=== PATIENT | female | born 1980 | race Two or more races ===

== ENCOUNTER 2025-03-03 17:51 | Emergency (ER) | payer BC, SELFPAY ==
[2025-03-03 17:52] VITALS: BMI 30.4
[2025-03-03 18:22] VITALS: BP 138/92; PULSE 85; RESP 18; TEMP 36.7; O2SAT 97
[2025-03-03 18:56] LABS: Collection Type, Urine Clean Catch
[2025-03-03 19:16] LABS: Bilirubin,Urine Negative (Negative); Blood,Urine 3+ (Negative); Clarity,Urine Clear (Clear/Hazy); Color,Urine Yellow (Lt Yel-Yel); Culture Indicated,Urine Not Indicated; Glucose, Urine Negative (Negative); Ketones,Urine Negative (Negative); Leukocyte Esterase,Urine Positive (Negative); Nitrite,Urine Negative (Negative); Protein,Urine Negative (Neg - Trace); RBC,Urine 27 /hpf (0-3); Specific Gravity,Urine 1.008 (1.001-1.035); Squamous Epithelial Cell,Urine 2 /hpf (0-5); Urobilinogen,Urine Negative mg/dL (0.0-1.0); WBC,Urine 7 /hpf (0-5)
[2025-03-03 19:39] LABS: HCG Qualitative,Urine Negative
[2025-03-03] MEDS: cefTRIAXone 1,000 MG, LIDOCAINE 1% 20 ML 2.1 ML IM (19:56)
[2025-03-03] MEDS: KETOROLAC INJ 60 MG/2 ML VIAL IM (19:57)
[2025-03-03] MEDS: AZITHROMYCIN 250 MG TABLET 1000 MG PO (19:57)
--- NOTE | 2025-03-03 19:59 | EDNOTE_ITS ---
ED Female Urogenital RME/HPI General Chief complaint: Urogenital-Female Stated complaint: UTI X1 WEEK; HEMATURIA X1 DAY Time Seen by Provider: 03/03/25 18:32 Arrival date/time: 03/03/25 17:51 44F with no significant PMH presents to ED with 1 week of dysuria. Patient started having hematuria after PCP did vaginal swabbing in clinic for STD screening. Patient has been taking 1 week of Macrobid w/o relief. Patient is concerned for STD since she hasn't had sexual intercourse in a while with him, but recently did. Limitations: no limitations Related Data Previous Rx's ?Medication ?Instructions ?Recorded meloxicam 7.5 mg tablet 7.5 mg PO QDAY #14 tabs 12/27 01/18 ondansetron 4 mg disintegrating 4 mg PO Q8H #14 tabs 0 01/07/23 tablet cefuroxime axetil 500 mg tablet 500 mg PO BID 7 days # 14 tabs 03/03/25 Allergies Allergy/AdvReac Type Severity Reaction Status Date / Time metoclopramide Allergy Mild Rash Verified 03/03/25 17:57 morphine Allergy Mild Rash Verified 03/03/25 17:57 codeine Allergy Unknown Verified 03/03/25 17:57 dicyclomine AdvReac Severe EYES TWITCH Verified 03/03/25 17:57 Review of Systems Review of Systems Systems Reviewed: All systems reviewed, normal except as documented Constitutional Constitutional: Reports system reviewed and no additional complaints, except as documented, Denies fever(s) and Denies headache(s) ENT Ears, Nose, Mouth, and Throat: Denies disequilibrium and Denies headache(s) Cardiovascular Cardiovascular: Reports system reviewed and no additional complaints, except as documented, Denies chest pain and Denies dyspnea Respiratory Respiratory: Reports system reviewed and no additional complaints, except as documented, Denies cough and Denies dyspnea Gastrointestinal Gastrointestinal: Reports system reviewed and no additional complaints, except as documented, Denies abdominal pain, Denies nausea and Denies vomiting Genitourinary Genitourinary: Reports as per HPI, Reports dysuria and Reports hematuria Neurologic Neurologic: Reports system reviewed and no additional complaints, except as documented, Denies confusion, Denies disequilibrium and Denies headache(s) Psychiatric Psychiatric: Denies confusion Past Medical History Past Medical History CARDIAC: Negative Congestive Heart Failure RESPIRATORY: Negative Chronic Obstructive Pulmonary Disease (COPD) GENITOURINARY: Negative Renal Disease ENDOCRINE: Negative Diabetes Mellitus Type 1 or Diabetes Mellitus Type 2 Social History SMOKING STATUS: Never smoker ED Exam General Limitations: Present no limitations General appearance: Present alert and in no apparent distress Head Head exam: Present atraumatic Eye Eye exam: Present normal appearance, PERRL and EOMI ENT ENT exam: Present normal exam, normal oropharynx and mucous membranes moist Neck Neck exam: Present normal inspection, full ROM and trachea midline Chest Chest inspection: Present normal inspection and symmetric chest wall rise Respiratory Respiratory exam: Present normal lung sounds bilaterally Cardiovascular Cardiovascular exam: Present regular rate, normal rhythm and normal heart sounds Abdominal Exam Abdominal exam: Present soft and normal bowel sounds Extremities Exam Extremities exam: Present normal inspection and full ROM Back Exam Back exam: Present normal inspection and full ROM Neurological Exam Neurological exam: Present alert, oriented X3 and CN II-XII intact Psychiatric Psychiatric exam: Present normal affect and normal mood Skin Skin exam: Present warm, dry, intact and normal color Course Quality Measures none Orders Category Date Time Status HCG Qualitative,Urine Stat Lab 03/03/25 18:44 Completed Urinalysis, C/S if Indicated Stat Lab 03/03/25 18:44 Completed Azithromycin Po [Zithromax PO] Med 03/03/25 19:26 Discontinued 1,000 mg PO X1 ONE Ketorolac Inj [Toradol Inj] Med 03/03/25 19:51 Discontinued 60 mg IM X1 ONE Naproxen [Naprosyn] Med 03/03/25 19:26 Discontinued 500 mg PO X1 ONE cefTRIAXone [Rocephin] 1,000 mg Med 03/03/25 19:27 Discontinued Lidocaine 1% 20 ml [Xylocaine 1% 20 ML] 2.1 ml IM X1 Vital Signs Vital signs: Vital Signs Temperature 98.1 F 03/03/25 18:22 Pulse Rate 85 03/03/25 18:22 Respiratory Rate 18 03/03/25 18:22 Blood Pressure 138/92 H 03/03/25 18:22 Pulse Oximetry (%) 97 03/03/25 18:22 Oxygen Delivery Method Room Air 03/03/25 18:22 O2 at 97% on RA and WNLs Urogenital - Female MDM Narrative MDM Narrative:: 44F with no significant PMH presents to ED with 1 week of dysuria. Patient started having hematuria after PCP did vaginal swabbing in clinic for STD sc reening. Patient has been taking 1 week of Macrobid w/o relief. Patient is concerned for STD since she hasn't had sexual intercourse in a while with him, but recently did. Physical exam reveals well-appearing female. Patient is afebrile, calm, and alert. UA suggests mild UTI. Will treat empirically for GC as patient requests. Patient will follow-up with PCP for test results. Patient data External records reviewed:: [facility] previous records Clinical information provided by:: patient Social determinants that could affect healthcare access:: none Patient has the following chronic illnesses:: none How is presenting disease/condition affected by chronic disease/condition?: no chronic disease Evaluation data The following diagnostics were reviewed and interpreted by me:: lab results Lab and/or radiology exams considered but not ordered:: ordered Interpretation Summary: above Medications / Prescriptions Medications or Prescriptions considered but not ordered:: ordered Medication administrations:: Medication Administration History Discontinued Medications Azithromycin (Azithromycin 250 Mg Tablet) 1,000 mg PO X1 ONE Stop: 03/03/25 19:27 Last Admin: 03/03/25 19:57 Dose: 1,000 mg Documented By: BERNARD Ceftriaxone Sodium 1,000 mg/ (Lidocaine HCl 2.1 ml) 0 mg IM X1 ONE Stop: 03/03/25 19:28 Last Admin: 03/03/25 19:56 Dose: 1,000 mg Documented By: BERNARD Ketorolac Tromethamine (Ketorolac Inj 60 Mg/2 Ml Vial) 60 mg IM X1 ONE Stop: 03/03/25 19:52 Last Admin: 03/03/25 19:57 Dose: 60 mg Documented By: BERNARD Naproxen (Naproxen 250 Mg Tablet) 500 mg PO X1 ONE Stop: 03/03/25 19:27 Last Admin: 03/03/25 19:57 Dose: Not Given Documented By: BERNARD Non-Admin Reason: Discontinued above Consultations Consultation(s) initiated? (list below): No Diagnosis Urogenital Female Differential Diagnosis: urinary tract infection, bacterial vaginosis, trichomoniasis, cervicitis, ovarian cyst, vaginitis, ruptured ovarian cyst, cyst of Bartholin's gland, cystitis, dysmenorrhea and other (concern for STD) Most likely diagnosis given after review of the tests above:: UTI and concern for STD Admission Indicated Admission indicated?: not indicated Admission Request Was there a request for admission?: No Disposition Plan Disposition Plan: Discharge Discharge Attestation Discharge Attestation: The patient and all family members were given an opportunity to ask questions and understood the discharge instructions. Discharge instructions specifically effects, indications for sooner follow up or return to the emergency department, and the expected course of current diagnosis. Patient condition: Stable Discharge Plan Plan Patient Disposition: HOME (Self Care) Disposition Comment: Stable Prescriptions/Referrals Prescriptions/Med Rec: New cefuroxime axetil 500 mg tablet 500 mg PO BID 7 Days Qty: 14 0RF No Action meloxicam 7.5 mg tablet 7.5 mg PO QDAY Qty: 14 0RF ondansetron 4 mg tablet,disintegrating 4 mg PO Q8H Qty: 14 0RF Referrals: Angela Eastman FNP [Primary Care Provider] - In 1 week Problem List Clinical Impression: Urinary tract infection, Concern about STD in female without diagnosis Patient/Caregiver Discharge Instructions Education Materials: ED CYSTITIS Female Adult Additional Instructions: Please follow-up with PCP within 24-48 hours and return immediately if symptoms worsen. NSAIDs tend to work better for this type of pain. Print Language: Frisian Stand Alone Forms: Patient Portal Info Letter ASHLEIGH/CHU Supervising Physician KATJA Supervising Physician: Dr. Houston
== END 2025-03-03 20:02 | disposition home or self-care (01) ==
PROVIDERS: Physician Assistant; Emergency Provider Emergency Medicine; PCP Nurse Practitioner Family
DX: N39.0 Urinary tract infection, site not specified (principal); Z20.2 Contact with and (suspected) exposure to infections with a predominantly sexual mode of transmission
CPT/HCPCS: 81001; 81025; 96372; 99283; J0696; J1885; J3490; A9270

== ENCOUNTER 2025-08-02 18:09 | Emergency (ER) | payer BC, SELFPAY ==
[2025-08-02 18:10] VITALS: BMI 29.5
[2025-08-02 18:24] VITALS: BP 153/102; PULSE 96; RESP 17; TEMP 36.6; O2SAT 97
--- NOTE | 2025-08-02 19:05 | EDNOTE_ITS ---
ED Skin Abcess FB-RME/HPI General Chief complaint: Skin/Abscess/Foreign Body Stated complaint: CAT SCRATCH LEFT ANKLE YESTERDAY, WORSE TODAY Time Seen by Provider: 08/02/25 18:44 Arrival date/time: 08/02/25 18:09 This is a case of 45-year-old female with no medical history came in in the emergency room due to redness and pain on the left anterior leg history of present illness started yesterday when the patient had cat bite sustained a superficial laceration in the left anterior leg due to pain redness no swelling thus patient decided to sought consult here in the emergency room patient tetanus is not up-to-date Limitations: no limitations Related Data Previous Rx's ?Medication ?Instructions ?Recorded meloxicam 7.5 mg tablet 7.5 mg PO QDAY #14 tabs 12/27 01/18 ondansetron 4 mg disintegrating 4 mg PO Q8H #14 tabs 0 01/07/23 tablet amoxicillin 875 mg-potassium 1 tab PO BID #20 tabs 06/19 clavulanate 125 mg tablet doxycycline monohydrate 100 mg 100 mg PO BID #20 caps 08/02/25 capsule ibuprofen 600 mg tablet 600 mg PO Q8H PRN pain #20 t abs 08/02/25 mupirocin 2 % topical ointment 1 applic topical BID #1 tube 08/02/25 Allergies Allergy/AdvReac Type Severity Reaction Status Date / Time codeine Allergy Severe Vomiting Verified 08/02/25 18:13 metoclopramide Allergy Severe Rash Verified 08/02/25 18:13 morphine Allergy Severe Rash Verified 08/02/25 18:13 dicyclomine AdvReac Severe EYES TWITCH Verified 08/02/25 18:13 Review of Systems Review of Systems Systems Reviewed: All systems reviewed, normal except as documented Constitutional Constitutional: Reports system reviewed and no additional complaints, except as documented and Reports as per HPI Cardiovascular Cardiovascular: Reports system reviewed and no additional complaints, except as documented and Reports as per HPI Respiratory Respiratory: Reports system reviewed and no additional complaints, except as documented and Reports as per HPI Gastrointestinal Gastrointestinal: Reports system reviewed and no additional complaints, except as documented and Reports as per HPI Musculoskeletal Musculoskeletal: Reports system reviewed and no additional complaints, except as documented and Reports as per HPI Neurologic Neurologic: Reports system reviewed and no additional complaints, except as documented and Reports as per HPI Past Medical History Past Medical History CARDIAC: Negative Congestive Heart Failure RESPIRATORY: Negative Chronic Obstructive Pulmonary Disease (COPD) GENITOURINARY: Negative Renal Disease ENDOCRINE: Negative Diabetes Mellitus Type 1 or Diabetes Mellitus Type 2 Social History SMOKING STATUS: Current every day smoker ED Exam General Limitations: Present no limitations General appearance: Present alert, in no apparent distress and other (Patient is awake alert oriented not in distress nontoxic looking well-hydrated well- nourished) Head Head exam: Present atraumatic, normocephalic and normal inspection Eye Eye exam: Present normal appearance, PERRL and EOMI ENT ENT exam: Present normal exam, normal oropharynx and mucous membranes moist Neck Neck exam: Present normal inspection, full ROM and trachea midline Chest Chest inspection: Present normal inspection and symmetric chest wall rise; Absent tenderness Respiratory Respiratory exam: Present normal lung sounds bilaterally; Absent respiratory distress, wheezes, stridor, accessory muscle use or prolonged expiratory phase Cardiovascular Cardiovascular exam: Present regular rate, normal rhythm and normal heart sounds; Absent bradycardia, tachycardia, irregular rhythm, systolic murmur or diastolic murmur Abdominal Exam Abdominal exam: Present soft and normal bowel sounds Extremities Exam Extremities exam: Present normal inspection and full ROM Expanded Lower Extremity Exam Lower leg exam: Present tenderness (Mild tenderness on the left anterior leg), laceration (Superficial laceration 0.5 cm), erythema and other (Negative King signs negative Homans signs no calf tenderness ROM intact pulses were full and equal capillary refill less than 2 seconds neurovascular intact sensory intact); Absent swelling, abrasion, ecchymosis, deformity, crepitus, dislocation, palpable cord, Homans' sign or Achilles tendon intact Back Exam Back exam: Present normal inspection and full ROM Neurological Exam Neurological exam: Present alert, oriented X3, CN II-XII intact, normal gait and reflexes normal; Absent motor sensory deficit Psychiatric Psychiatric exam: Present normal affect and normal mood Skin Skin exam: Present warm, dry, intact, normal color and other (Patient sustained a 0.5 cm laceration superficial old tender to touch no discharge no fluctuance not indurated no abscess with streak redness suggestive of cellulitis) Course Quality Measures none Orders Category Date Time Status Clindamycin Vial [Cleocin vial] Med 08/02/25 19:02 Discontinued 600 mg IM X1 ONE TET,DIP/PERT AC (Adult)-Tdap [Boostrix Adult (Tdap) Med 08/02/25 19:02 Discontinued Vacc] 0.5 ml IMI .ONCE ONE Vital Signs Vital signs: Vital Signs Temperature 97.8 F 08/02/25 18:24 Pulse Rate 96 08/02/25 18:24 Respiratory Rate 17 08/02/25 18:24 Blood Pressure 153/102 H 08/02/25 18:24 Pulse Oximetry (%) 97 08/02/25 18:24 Oxygen Delivery Method Room Air 08/02/25 18:24 Oxygen saturation is 97% in room air Skin / Abscess / Foreign Body MDM Narrative MDM Narrative:: This is a case of 45-year-old female with no medical history came in in the emergency room due to redness and pain on the left anterior leg history of present illness started yesterday when the patient had cat bite sustained a superficial laceration in the left anterior leg due to pain redness no swelling thus patient decided to sought consult here in the emergency room patient tetanus is not up-to-date physical examination patient is awake alert oriented not in distress nontoxic looking well-hydrated well-nourished vital signs stable afebrile nontachycardic nontachypneic nonhypoxic patient sustained a superficial laceration small 0.5 cm on the left anterior leg with redness no swelling no crepitation no deformity no abscess but with streak redness suggestive of cellulitis at this point patient sustained a cellulitis of left anterior leg secondary to superficial laceration old secondary to cat bite patient was given clindamycin here in the emergency room for cellulitis and was given also Tdap wound was clean and covered with nonadherent gauze patient was discharged with Augmentin and doxycycline for cellulitis secondary to dog bite patient will follow-up with PCP in 2 days for reevaluation and return to the emergency room for evaluation of cellulitis return precaution to the ER for worsening symptoms is advised Patient was discharged with comfortable condition walking with stable gait. Patient verbalized no further complains explained diagnosis and answered patient question. Patient is comfortable with the proposed management plan including the need to follow up with his/her primary care physician and any specialist if applicable Discussed patient for any urgent condition or worsening sx, He/She needed to go to emergency room immediately or call 911. Patient acknowledge the responsibility to follow up as instructed and to monitor her/his symptoms. For any persistence of the symptoms for more than 3-5 days return precaution advised. Discussed the result of the test and was given printed discharge instruction Patient data External records reviewed:: [facility] previous records Clinical information provided by:: patient Social determinants that could affect healthcare access:: none Patient has the following chronic illnesses:: None How is presenting disease/condition affected by chronic disease/condition?: no chronic disease Evaluation data The following diagnostics were reviewed and interpreted by me:: other (specify) Lab and/or radiology exams considered but not ordered:: None Interpretation Summary: None Medications / Prescriptions Medications or Prescriptions considered but not ordered:: Given Medication administrations:: Medication Administration History Discontinued Medications Clindamycin Phosphate (Clindamycin Phos Inj 150 Mg/Ml Vial 6 Ml) 600 mg IM X1 ONE Stop: 08/02/25 19:03 Diphtheria/Tetanus/Acell Pertussis (Diphth,Pertuss(Acell),Tet Vac 0.5 Ml Syr- Adult) 0.5 ml IMi .ONCE ONE Stop: 08/02/25 19:03 Given Consultations Consultation(s) initiated? (list below): No Diagnosis Skin/Abscess Differential Diagnosis: abscess of skin or subcutaneous tissue, urticaria, cellulitis, insect bites and contact dermatitis Most likely diagnosis given after review of the tests above:: Cellulitis secondary to old superficial lacerations secondary to cat bite Admission Indicated Admission indicated?: not indicated Explain why admission is indicated or not indicated:: Not indicated Admission Request Was there a request for admission?: No Admission Attestation Admission request attestation: Not indicated Disposition Plan Disposition Plan: Discharge Discharge Attestation Discharge Attestation: The patient and all family members were given an opportunity to ask questions and understood the discharge instructions. Discharge instructions specifically effects, indications for sooner follow up or return to the emergency department, and the expected course of current diagnosis. Patient condition: Stable Discharge Plan Plan Patient Disposition: HOME (Self Care) Patient condition on transfer: Stable Prescriptions/Referrals Prescriptions/Med Rec: New amoxicillin-pot clavulanate 875-125 mg tablet 1 tab PO BID Qty: 20 0RF doxycycline monohydrate 100 mg capsule 100 mg PO BID Qty: 20 0RF mupirocin 2 % ointment 1 applic topical BID Qty: 1 0RF ibuprofen 600 mg tablet 600 mg PO Q8H PRN (Reason: pain) Qty: 20 0RF No Action meloxicam 7.5 mg tablet 7.5 mg PO QDAY Qty: 14 0RF ondansetron 4 mg tablet,disintegrating 4 mg PO Q8H Qty: 14 0RF Problem List Clinical Impression: Cat bite, Superficial laceration of lower extremity, Cellulitis Patient/Caregiver Discharge Instructions Education Materials: ED Cat Bite, ED Cellulitis, ED Laceration Small or ... Additional Instructions: Follow-up with your primary care physician in 2 days for reevaluation return in the emergency room in 2 days for evaluation of cellulitis worsening symptoms or any emergent concerns such as redness swelling discharge from the wound pain fever chills return to the emergency room immediately or call 911 keep the wound clean and dry finish the course of antibiotic Print Language: Turkish Stand Alone Forms: Tonie Award Info., Patient Portal Info Letter PA/ADVANCE SCOUT Supervising Physician PA/ADVANCE SCOUT Supervising Physician: Dr. Ruiz
[2025-08-02] MEDS: CLINDAMYCIN PHOS INJ 150 MG/ML VIAL 6 ML 600 MG IM (19:29)
[2025-08-02] MEDS: DIPHTH,PERTUSS(ACELL),TET VAC 0.5 ML SYR- ADULT IMi (19:32)
[2025-08-02] MEDS: HYDROcodone/APAP 5/325 TABLET 1 TAB PO (19:58)
== END 2025-08-02 20:05 | disposition home or self-care (01) ==
LOC: SERX 19:49
PROVIDERS: Emergency Provider Emergency Medicine; PCP Family Medicine
DX: N39.0 Urinary tract infection, site not specified (principal); Z13.89 Encounter for screening for other disorder
CPT/HCPCS: 90471; 90715; 96372; 99282; J0736; A9270

== ENCOUNTER 2025-10-15 18:28 | Emergency (ER) | payer BC, SELFPAY ==
[2025-10-15 18:28] VITALS: BMI 28.1
[2025-10-15 19:08] VITALS: BP 155/102; PULSE 93; RESP 18; TEMP 36.9; O2SAT 95
--- NOTE | 2025-10-15 19:12 | XR_ITS ---
EXAMINATION: PA lateral chest 2 views TECHNIQUE: Upright PA lateral chest 2 views Date and time: October 15, 2025, 1919 hours INDICATIONS: Coughing congestion 1 week. FINDINGS: Normal heart size Lungs are clear. Osseous structures are intact IMPRESSION: No active disease
--- NOTE | 2025-10-15 19:13 | EDRME_ITS ---
Rapid Medical Screening Exam [facility] Arrival date/time: 10/15/25 18:28 45F with no significant PMH presents to ED with 1 week of worsening cough and SOB. Patient recently finished a 7 day course of Augmentin and some prednisone w/o improvement. Chief Complaint: Upper Respiratory Infection Time Seen by Provider: 10/15/25 19:26 Vital signs: Vital Signs Temperature 98.4 F 10/15/25 19:08 Pulse Rate 93 10/15/25 19:08 Respiratory Rate 18 10/15/25 19:08 Blood Pressure 155/102 H 10/15/25 19:08 Pulse Oximetry (%) 95 10/15/25 19:08 Oxygen Delivery Method Room Air 10/15/25 19:08 Exam: Clear lungs. Normal WOB. Clinical Impression: URI vs CAP vs Valley Fever vs PE
[2025-10-15 19:35] VITALS: BP 143/101; PULSE 107; RESP 20; O2SAT 97
[2025-10-15 19:36] LABS: Basophils # (Auto) 0.0 Thou/mm3 (0.0-0.2); Basophils % (Auto) 0 % (0-2.5); Eosinophils # (Auto) 0.0 Thou/mm3 (0.0-0.5); Eosinophils % (Auto) 0 % (0-10); Hematocrit 42.7 % (36.0-46.0); Hemoglobin 14.4 g/dL (12.0-16.0); Immature Granulocytes Auto 0.11 Thou/mm3 (0.00-0.00); Lymphocytes # (Auto) 2.0 Thou/mm3 (1.0-4.8); Lymphocytes % (Auto) 17 % (10-50); Mean Corpuscular HGB Conc 33.7 g/dl (31.0-37.0); Mean Corpuscular Hemoglobin 29.6 pg (25.0-35.0); Mean Corpuscular Volume 88 fL (80-100); Monocytes # (Auto) 0.7 Thou/mm3 (0.0-0.8); Monocytes % (Auto) 6 % (0-12); Neutrophils # (Auto) 8.7 Thou/mm3 (1.8-7.7); Neutrophils % (Auto) 75 % (37-80); Nucleated Red Blood Cell # 0.00 Thou/mm3 (0.00-0.00); Nucleated Red Blood Cell % 0 /100 WBC (0); Platelet Count 295 Thou/mm3 (140-440); RDW Standard Deviation 40.8 fL (36.4-46.3); Red Blood Count 4.87 Miln/mm3 (4.00-5.20); White Blood Count 11.6 Thou/mm3 (3.6-11.0)
[2025-10-15 19:50] LABS: Influenza A Ag Negative; Influenza B Ag Negative
[2025-10-15 19:56] LABS: Alanine Aminotransferase 36 U/L (10-49); Albumin, Serum 4.9 gm/dL (3.5-5.0); Albumin/Globulin Ratio 2.0 (1.2-2.2); Alkaline Phosphatase 108 U/L (46-116); Anion Gap 11 (7-16); Aspartate Amino Transferase 21 U/L (0-34); BUN/Creatinine Ratio 11 Ratio (12-20); Bilirubin,Total 0.2 mg/dL (0.3-1.2); Blood Urea Nitrogen 8 mg/dL (9-23); Calcium 9.3 mg/dL (8.3-10.6); Calcium (Corrected) 9.3 mg/dL (8.5-10.1); Carbon Dioxide 30.1 mMol/L (20.0-31.0); Chloride 107 mMol/L (98-107); Creatinine (Component) 0.7 mg/dL (0.6-1.3); Estimated Creatinine Clearance 95.6 mL/min (>60); Globulin 2.5 gm/dL (2.3-3.5); Glucose 104 mg/dL (74-106); Osmolality,Calculated 292 (275-295); Potassium 3.3 mMol/L (3.4-5.1); Sodium 148 mMol/L (136-145); Total Protein 7.4 gm/dL (5.7-8.2); Troponin I < 0.020 ng/mL (0.0-0.045); eGFR > 60 See Note
--- NOTE | 2025-10-15 20:00 | EDNOTE_ITS ---
Upper Respiratory Inf. RME/HPI General Chief Complaint: Upper Respiratory Infection Stated Complaint: FLU LIKE SYMPTOMS Time Seen by Provider: 10/15/25 19:26 Arrival date/time: 10/15/25 18:28 45-year-old female patient with no past medical history, came in for evaluation regarding worsening cough. Patient has been having worsening cough for more than a week, associated with chest pain and coughing, severity moderate. Patient was seen by PCP, and was started on Augmentin and prednisone. Patient completed a dose of Augmentin and prednisone. Denies any fever. Denies any other complaints no medication was taken prior to ER visit. RME / HPI RME / HPI Narrative: 10/15/25 18:28 45F with no significant PMH presents to ED with 1 week of worsening cough and SOB. Patient recently finished a 7 day course of Augmentin and some prednisone w/o improvement. Exam: Clear lungs. Normal WOB. Impression: URI vs CAP vs [place] Fever vs PE Related Data Previous Rx's ?Medication ?Instructions ?Recorded meloxicam 7.5 mg tablet 7.5 mg PO QDAY #14 tabs 12/27 01/18 ondansetron 4 mg disintegrating 4 mg PO Q8H #14 tabs 0 01/07/23 tablet amoxicillin 875 mg-potassium 1 tab PO BID #20 tabs 06/19 clavulanate 125 mg tablet doxycycline monohydrate 100 mg 100 mg PO BID #20 caps 08/02/25 capsule ibuprofen 600 mg tablet 600 mg PO Q8H PRN pain #20 t abs 08/02/25 mupirocin 2 % topical ointment 1 applic topical BID #1 tube 08/02/25 benzonatate 200 mg capsule 200 mg PO TID PRN cough #30 caps 10/15/25 fexofenadine 60 mg-pseudoephedrine 1 tab PO Q12H PRN a llergy symptoms 10/15/25 ER 120 mg tablet,ext.release,12 hr #20 tabs (Suzie-D 12 Hour) Allergies Allergy/AdvReac Type Severity Reaction Status Date / Time codeine Allergy Severe Vomiting Verified 08/02/25 18:13 metoclopramide Allergy Severe Rash Verified 08/02/25 18:13 morphine Allergy Severe Rash Verified 08/02/25 18:13 dicyclomine AdvReac Severe EYES TWITCH Verified 08/02/25 18:13 Review of Systems Review of Systems Narrative Review of Systems: Review of system reviewed and within normal limits except mentioned in HPI ED Exam Narrative Physical exam: VITAL SIGNS: Reviewed. GENERAL APPEARANCE: Alert and interactive, follows commands, no acute distress, HEAD AND FACE: Non-traumatic. ENT: PERRL, pink conjunctivitis, eyelid no trauma, Mucous membrane moist. NECK: Supple, nontender, no nuchal rigidity. CHEST: No tenderness, no crepitus, no paradoxical movement, no retractions. LUNGS: Clear, well ventilated, symmetric, no rales, no wheezing, no ronchi, no stridor, good breath sounds bilaterally. HEART: Regular rate, regular rhythm, no murmur, no gallops. ABDOMEN: Soft, positive bowel sounds, nondistended, no guarding, nontender, no rebound, no masses, RECTAL: Deferred. GENITAL: Deferred. NEUROLOGICAL: Gross motor function intact sensory function intact, Appropriate for age. MUSCULOSKELETAL: low back nontender, full range of motion. EXTREMITIES: Nontender, full range of motion. SKIN: Color pink, dry, no rash, no lacerations, no abrasions, no contusions. LYMPHATICS: Deferred. Course Quality Measures none Orders Category Date Time Status Bedside COVID-19 Antigen Test NOW Care 10/15/25 19:12 Completed XR chest 2V Stat Exams 10/15/25 19:12 Completed B-Type Natriuretic Peptide Stat Lab 10/15/25 19:22 Completed CBC Stat Lab 10/15/25 19:22 Completed Cocci Serology IgM with reflex to IgG [Cocci Serology, Lab 10/15/25 19:22 Received Unk History] Stat Comprehensive Metabolic Panel Stat Lab 10/15/25 19:22 Completed Influenza A & B Rapid Panel Stat Lab 10/15/25 19:21 Completed Troponin I Stat Lab 10/15/25 19:22 Completed Albuterol/Ipratr Rt Georgette [Duoneb Rt Georgette] Med 10/15/25 19:58 Discontinued 3 ml INH X1 ONE Benzonatate [Tessalon] Med 10/15/25 19:58 Discontinued 200 mg PO X1 ONE Dexamethasone Inj [Decadron Inj] Med 10/15/25 19:58 Discontinued 15 mg PO X1 ONE DiphenhydrAMINE [Benadryl] Med 10/15/25 19:58 Discontinued 50 mg PO X1 ONE Potassium Chloride [K-Dur] Med 10/15/25 20:54 Discontinued 40 meq PO X1 ONE Vital Signs Vital signs: Vital Signs Temperature 98.4 F 10/15/25 19:08 Pulse Rate 93 10/15/25 19:08 Respiratory Rate 18 10/15/25 19:08 Blood Pressure 155/102 H 10/15/25 19:08 Pulse Oximetry (%) 95 10/15/25 19:08 Oxygen Delivery Method Room Air 10/15/25 19:08 Upper Respiratory Infection MDM Narrative MDM Narrative:: 45-year-old female patient with no past medical history, came in for evaluation regarding worsening cough. Patient has been having worsening cough for more than a week, associated with chest pain and coughing, severity moderate. Patient was seen by PCP, and was started on Augmentin and prednisone. Patient completed a dose of Augmentin and prednisone. Denies any fever. Denies any other complaints no medication was taken prior to ER visit. chest x-ray came back unremarkable. The rest of the labs unremarkable. Patient was given DuoNeb breathing treatment, Tessalon, Decadron, Benadryl and potassium chloride patient with significant improvement of coughing. Was noted to be satting 94% on room air. Patient stable for discharge home. Patient data External records reviewed:: None Clinical information provided by:: patient Social determinants that could affect healthcare access:: none Patient has the following chronic illnesses:: none How is presenting disease/condition affected by chronic disease/condition?: no chronic disease Evaluation data The following diagnostics were reviewed and interpreted by me:: lab results and radiology exam(s) Lab and/or radiology exams considered but not ordered:: none Interpretation Summary: See above Medications / Prescriptions Medications or Prescriptions considered but not ordered:: None Medication administrations:: Medication Administration History Discontinued Medications Albuterol/Ipratropium (Albuterol/Ipratropium (Duoneb) Rt Georgette 3 Ml Nebu) 3 ml INH X1 ONE Stop: 10/15/25 19:59 Last Admin: 10/15/25 21:15 Dose: 3 ml Documented By: COLT Benzonatate (Benzonatate 100 Mg Capsule) 200 mg PO X1 ONE; Protocol Stop: 10/15/25 19:59 Last Admin: 10/15/25 21:03 Dose: 200 mg Documented By: WENDY Dexamethasone Sodium Phosphate (Dexamethasone Sod Phos Inj 10 Mg/Ml Vial) 15 mg PO X1 ONE Stop: 10/15/25 19:59 Last Admin: 10/15/25 20:20 Dose: 15 mg Documented By: WENDY Diphenhydramine HCl (Diphenhydramine 25 Mg Capsule) 50 mg PO X1 ONE Stop: 10/15/25 19:59 Last Admin: 10/15/25 20:19 Dose: 50 mg Documented By: WENDY Potassium Chloride (Potassium Chloride 20 Meq Tabcr) 40 meq PO X1 ONE Stop: 10/15/25 20:55 Last Admin: 10/15/25 21:03 Dose: 40 meq Documented By: WENDY See above Consultations Consultation(s) initiated? (list below): No Diagnosis Upper Respiratory Differential Diagnosis: upper respiratory infection, viral infection and bronchitis Most likely diagnosis given after review of the tests above:: Cough, shortness of breath Admission Indicated Admission indicated?: not indicated Admission Request Was there a request for admission?: No Disposition Plan Disposition Plan: Discharge Discharge Attestation Discharge Attestation: The patient was given an opportunity to ask questions and understood the discharge instructions. Discharge instructions specifically effects, indications for sooner follow up or return to the emergency department, and the expected course of current diagnosis. Patient condition: Stable Discharge Plan Plan Patient Disposition: HOME (Self Care) Discharge Disposition comment: stable Prescriptions/Referrals Prescriptions/Med Rec: New benzonatate 200 mg capsule 200 mg PO TID PRN (Reason: cough) Qty: 30 0RF fexofenadine-pseudoephedrine [Suzie-D 12 Hour] 60-120 mg tablet extended release 12 hr 1 tab PO Q12H PRN (Reason: allergy symptoms) Qty: 20 0RF No Action amoxicillin-pot clavulanate 875-125 mg tablet 1 tab PO BID Qty: 20 0RF doxycycline monohydrate 100 mg capsule 100 mg PO BID Qty: 20 0RF mupirocin 2 % ointment 1 applic topical BID Qty: 1 0RF ibuprofen 600 mg tablet 600 mg PO Q8H PRN (Reason: pain) Qty: 20 0RF meloxicam 7.5 mg tablet 7.5 mg PO QDAY Qty: 14 0RF ondansetron 4 mg tablet,disintegrating 4 mg PO Q8H Qty: 14 0RF Referrals: Obinna Wakefield MD [Primary Care Provider, Family Practice] - In 1 week Problem List Clinical Impression: Cough, SOB (shortness of breath) Patient/Caregiver Discharge Instructions Discharge Activity: activity as tolerated Education Materials: ED Shortness of Breath (Dyspnea) Additional Instructions: Thank you for the opportunity for serving you today. You are stable for discharged . You are advised to: Follow-up with your PCP in 1 to 2 days Return to ED for worsening of symptoms Increase oral fluids Take medication as prescribed Print Language: Sami Stand Alone Forms: Tonie Award Info., Patient Portal Info Letter PA/INSTRUCTIONAL TECHNOLOGY INSTRUCTOR Supervising Physician PA/INSTRUCTIONAL TECHNOLOGY INSTRUCTOR Supervising Physician: MD Soren
[2025-10-15 20:02] LABS: B-Type Natriuretic Peptide < 20 pg/mL (0-100)
[2025-10-15] MEDS: DEXAMETHASONE SOD PHOS INJ 10 MG/ML VIAL 15 MG PO (20:20)
[2025-10-15] MEDS: BENZONATATE 100 MG CAPSULE 200 MG PO (21:03)
[2025-10-15] MEDS: ALBUTEROL/IPRATROPIUM (Duoneb) RT SOL 3 ML NEBU INH (21:15)
[2025-10-15 21:52] VITALS: PULSE 78; RESP 18; O2SAT 96
[2025-10-15 22:08] VITALS: BP 142/87; PULSE 79; RESP 18; O2SAT 94
[2025-10-16 14:01] LABS: Cocci Serology, IgM Negative (Negative)
[2025-10-17 14:35] LABS: Cocci Serology, IgG Negative (Negative)
== END 2025-10-15 22:10 | disposition home or self-care (01) ==
PROVIDERS: Physician Assistant; Emergency Provider Emergency Medicine; PCP Family Medicine
DX: R05.9 Cough, unspecified (principal); R06.02 Shortness of breath
CPT/HCPCS: 36415; 71046; 80053; 83880; 84484; 85025; 86331; 86635; 87502; 87635; 94640; 99283; A9270; J1100

== ENCOUNTER 2025-11-08 05:05 | Emergency (ER) | payer BC, SELFPAY ==
[2025-11-08 05:07] VITALS: BMI 28.3
--- NOTE | 2025-11-08 05:22 | XR_ITS ---
EXAMINATION: AP chest single view TECHNIQUE: AP portable upright chest single view Date and time: November 08, 2025, 0556 hours, comparison October 15, 2025 INDICATIONS: Cough and sore throat vomiting shortness of breath today. FINDINGS: Minor subsegmental atelectasis left upper lobe Normal heart size Mild accentuation of bronchovascular markings. No aspiration pneumonia IMPRESSION: Mild basilar bronchitis pattern
--- NOTE | 2025-11-08 05:24 | PD.EDRME ---
Rapid Medical Screening Exam RME Arrival date/time: 11/08/25 05:05 This is a case of 45-year-old female with no medical history came in in the emergency room due to productive cough nasal congestion and sore throat since yesterday due to worsening of the symptoms now with vomiting nonprojectile thus patient decided to sought consult here in the emergency room Chief Complaint: Flu Like Symptoms Time Seen by Provider: 11/08/25 05:22 Exam: Noted wheezing both lower lung field no crackles no rales no retraction no stridor pharynx red bilateral tonsils were normal Clinical Impression: Cough and vomiting
[2025-11-08 05:25] VITALS: BP 121/80; PULSE 107; RESP 22; TEMP 37.5; O2SAT 94
[2025-11-08] MEDS: ALBUTEROL/IPRATROPIUM (Duoneb) RT SOL 3 ML NEBU INH (05:42)
[2025-11-08 05:46] VITALS: PULSE 111; RESP 22; O2SAT 99
[2025-11-08] MEDS: ONDANSETRON ODT 4 MG TABRAP PO (05:47)
--- NOTE | 2025-11-08 07:04 | EDNOTE_ITS ---
<Statement entered by Sharyn Moran MD - 11/08/25 11:58> As co-signing physician, I was present and available for consult prn. I concur with the plan and care as documented by the midlevel provider. Upper Respiratory Inf. RME/HPI General Chief Complaint: Flu Like Symptoms Stated Complaint: COUGH, SORE THROAT Time Seen by Provider: 11/08/25 05:22 Arrival date/time: 11/08/25 05:05 RME / HPI RME / HPI Narrative: 11/08/25 05:05 This is a case of 45-year-old female with no medical history came in in the emergency room due to productive cough nasal congestion and sore throat since yesterday due to worsening of the symptoms now with vomiting nonprojectile thus patient decided to sought consult here in the emergency room Exam: Noted wheezing both lower lung field no crackles no rales no retraction no stridor pharynx red bilateral tonsils were normal Impression: Cough and vomiting Related Data Previous Rx's ?Medication ?Instructions ?Recorded meloxicam 7.5 mg tablet 7.5 mg PO QDAY #14 tabs 12/27 01/18 ondansetron 4 mg disintegrating 4 mg PO Q8H #14 tabs 0 01/07/23 tablet amoxicillin 875 mg-potassium 1 tab PO BID #20 tabs 06/19 clavulanate 125 mg tablet doxycycline monohydrate 100 mg 100 mg PO BID #20 caps 08/02/25 capsule ibuprofen 600 mg tablet 600 mg PO Q8H PRN pain #20 t abs 08/02/25 mupirocin 2 % topical ointment 1 applic topical BID #1 tube 08/02/25 benzonatate 200 mg capsule 200 mg PO TID PRN cough #30 caps 10/15/25 fexofenadine 60 mg-pseudoephedrine 1 tab PO Q12H PRN a llergy symptoms 10/15/25 ER 120 mg tablet,ext.release,12 hr #20 tabs (Suzie-D 12 Hour) albuterol 90 mcg-budesonide 80 2 inh inhalation QID LA N shortness 11/08/25 mcg/actuation HFA aerosol inhaler of breath #10.7 gram s dexamethasone 6 mg tablet 12 mg (2 x 6 mg) PO QDAY #2 tabs 11/08/25 ondansetron 4 mg disintegrating 4 mg PO TID 3 days #9 tabs 11/08/25 tablet oseltamivir 75 mg capsule (Tamiflu) 75 mg PO BID 5 day s #10 caps 11/08/25 Allergies Allergy/AdvReac Type Severity Reaction Status Date / Time codeine Allergy Severe Vomiting Verified 11/08/25 05:10 metoclopramide Allergy Severe Rash Verified 11/08/25 05:10 morphine Allergy Severe Rash Verified 11/08/25 05:10 dicyclomine AdvReac Severe EYES TWITCH Verified 11/08/25 05:10 ED Exam Narrative Physical exam: Constitutional: Patient alert and oriented. Well appearing. No acute distress. Not toxic appearing. Head: Normocephalic, atraumatic. Eyes: Periorbital regions bilaterally normal to inspection. Conjunctiva clear bilaterally. Sclera anicteric bilaterally. Pupils equal, round, reactive to light bilaterally. Extraocular movements intact bilaterally. Mouth/Throat: Mucous membranes moist. Mild cobblestoning erythema noted of oropharynx. Uvula midline. No edema or exudates of tonsils bilaterally. No stridor or muffled voice. No trismus. Handling secretions without difficulty. Airway widely patent. Neck: Supple. Trachea midline. No JVD. No nuchal rigidity. Normal range of motion. Respiratory: Normal effort. No accessory muscle use or respiratory distress. Lungs with scant expiratory wheezing bilaterally. Cardiovascular: RRR. Normal S1/S2. No murmurs or rubs. Radial pulses intact bilaterally. Abdomen: Soft. Non-distended. Non-tender throughout. No pulsatile mass. No guarding or rebound. Negative Marcelo?s sign. Negative McBurney?s point tenderness. Negative Rovsing?s. Back: No midline tenderness or step-offs. No CVA tenderness to palpation bilaterally. Upper Extremities: No gross deformities. Lower Extremities: No gross deformities. No edema or calf tenderness. Neuro: Speech normal. No gross motor or sensory deficits to upper or lower extremities bilaterally. GCS 15. CN II?XII grossly intact. Skin: Warm, dry, normal color. Psych: Normal affect. Cooperative. Normal insight. Course Course Course Narrative: 45-year-old female with a past medical history of bronchitis, migraines presents to the ER complaint of cough, congestion, fever sore throat, nausea vomiting which started yesterday. 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 given lack of mass effect in OP cavity (uvula midline, no muffled voice/stridor/tripoding/drooling, airway widely patent, tolerating secretions and PO without difficulty) Chest x-ray notable for mild basilar bronchitis bilaterally otherwise no acute cardiopulmonary abnormality and no focal consolidation or effusions Lab work notable for positive influenza A Patient was administered a breathing treatment as well as dexamethasone and Zofran prior to my arrival and evaluation with improvement of her symptoms and remains without respiratory distress Patient's heart rate remains tachycardic though at 123 with a respiratory rate of 17 and a temp of 100.3 will perform labs to rule out severe metabolic or electrolyte abnormality, administer antipyretics, Tamiflu and push oral hydration, ED dispo pending ED course likely DC with supportive treatment and strict ER return precautions Quality Measures none Orders Category Date Time Status Bedside COVID-19 Antigen Test NOW Care 11/08/25 05:22 Completed Bedside Influenza A&B Antigen Test NOW Care 11/08/25 05:22 Completed Bedside STREP Test NOW Care 11/08/25 05:22 Completed Continuous Pulse Oximetry NOW Care 11/08/25 07:43 Completed XR chest 1V Stat Exams 11/08/25 05:22 Completed Blood Culture (Lab) Stat Lab 11/08/25 08:07 Received CBC Stat Lab 11/08/25 08:01 Completed Comprehensive Metabolic Panel Stat Lab 11/08/25 08:01 Completed Lactic Acid [Lactate (Lactic Acid)] Stat Lab 11/08/25 08:01 Completed ALBUTEROL RT 0.5ml [Proventil Rt 0.5ml] Med 11/08/25 07:44 Discontinued 5 mg INH X1 ONE Acetaminophen Tab [Tylenol Tab] Med 11/08/25 07:39 Discontinued 325 mg PO X1 ONE Acetaminophen Tab [Tylenol Tab] Med 11/08/25 07:03 Discontinued 650 mg PO X1 ONE Albuterol/Ipratr Rt Georgette [Duoneb Rt Georgette] Med 11/08/25 05:22 Discontinued 3 ml INH X1 ONE Ibuprofen Tab [Motrin Tab] Med 11/08/25 07:39 Discontinued 800 mg PO X1 ONE Ipratropium [place] Rt Georgette [Atrovent Rt Georgette] Med 11/08/25 07:44 Discontinued 0.5 mg INH X1 ONE Ondansetron Odt [Zofran Odt] Med 11/08/25 05:22 Discontinued 4 mg PO X1 ONE Oseltamivir [Tamiflu] Med 11/08/25 07:37 Discontinued 75 mg PO X1 ONE Sodium Chloride Rt Georgette 0.9% [NS Rt Georgette 0.9%] Med 11/08/25 07:44 Discontinued 3 ml INH PRN PRN Sodium Chloride Rt Georgette 0.9% [NS Rt Georgette 0.9%] Med 11/08/25 07:44 Discontinued 3 ml INH PRN PRN Sodium Chloride Rt Georgette 0.9% [NS Rt Georgette 0.9%] Med 11/08/25 07:44 Discontinued 3 ml INH PRN PRN dexAMETHasone INJ [Decadron Inj] Med 11/08/25 05:22 Discontinued 10 mg IM X1 ONE Vital Signs Vital signs: Vital Signs Temperature 99.5 F 11/08/25 05:25 Pulse Rate 107 H 11/08/25 05:25 Respiratory Rate 22 H 11/08/25 05:25 Blood Pressure 121/80 11/08/25 05:25 Pulse Oximetry (%) 94 L 11/08/25 05:25 Oxygen Delivery Method Room Air 11/08/25 05:25 Upper Respiratory Infection MDM Narrative MDM Narrative:: 45-year-old female with past medical history of migraines, bronchitis presents to the ER complaining of constellation of symptoms consistent with viral syndrome This patient has been diagnosed with a viral illness. A careful history and physical exam, and laboratory testing as appropriate, show no signs of meningitis, pneumonia, or other serious viral or bacterial infection. I considered antibiotics; however, given viral etiology, it is not indicated. The patient is told that viral illness is a presumptive diagnosis and if improvement is not occurring within several days or if symptoms change or worse n, a re-evaluation needs to be done with the PMD or in the ED to make sure a more serious, as yet undiagnosable, problem is not occurring. Patient data External records reviewed:: [facility] previous records Clinical information provided by:: patient Social determinants that could affect healthcare access:: none Patient has the following chronic illnesses:: As noted How is presenting disease/condition affected by chronic disease/condition?: exacerbated by Evaluation data The following diagnostics were reviewed and interpreted by me:: lab results and radiology exam(s) Lab and/or radiology exams considered but not ordered:: Additional Labs and radiology considered, but not ordered as they were not clinically indicated at this time. Interpretation Summary: Lab work with minimally elevated WBCs 11.5, left shift with neutrophil percentage 94%, minimally elevated neutrophil #10.8 remainder of CBC and CMP out any abnormalities and lactic acid within normal limits at 1.7 Medications / Prescriptions Medications or Prescriptions considered but not ordered:: I ordered medications based on the patient?s clinical needs and assessment, as documented in the chart. For medications not prescribed, they were not indicated for the patient's current condition, and I determined they were unnecessary at this time to avoid potential risks or complications. Medication administrations:: Medication Administration History Discontinued Medications Acetaminophen (Acetaminophen 325 Mg Tablet) 650 mg PO X1 ONE Stop: 11/08/25 07:04 Last Admin: 11/08/25 07:07 Dose: 650 mg Documented By: GM Acetaminophen (Acetaminophen 325 Mg Tablet) 325 mg PO X1 ONE Stop: 11/08/25 07:40 Last Admin: 11/08/25 07:56 Dose: Not Given Documented By: GM Non-Admin Reason: Duplicate Medication on eMAR Albuterol (Albuterol Rt 2.5 Mg/0.5 Ml Nebu) 5 mg INH X1 ONE Stop: 11/08/25 07:45 Last Admin: 11/08/25 08:02 Dose: Not Given Documented By: GM Non-Admin Reason: Discontinued Albuterol/Ipratropium (Albuterol/Ipratropium (Duoneb) Rt Georgette 3 Ml Nebu) 3 ml INH X1 ONE Stop: 11/08/25 05:23 Last Admin: 11/08/25 05:42 Dose: 3 ml Documented By: TP Dexamethasone Sodium Phosphate (Dexamethasone Sod Phos Inj 10 Mg/Ml Vial) 10 mg IM X1 ONE Stop: 11/08/25 05:23 Last Admin: 11/08/25 05:46 Dose: 10 mg Documented By: JESSICA Ibuprofen (Ibuprofen Tab 400 Mg Tablet) 800 mg PO X1 ONE Stop: 11/08/25 07:40 Last Admin: 11/08/25 07:54 Dose: 800 mg Documented By: GM Ipratropium [place] (Ipratropium Rt 0.5 Mg/ 2.5 Ml Nebu) 0.5 mg INH X1 ONE Stop: 11/08/25 07:45 Last Admin: 11/08/25 08:02 Dose: Not Given Documented By: GM Non-Admin Reason: Discontinued Ondansetron HCl (Ondansetron Odt 4 Mg Tabrap) 4 mg PO X1 ONE; Protocol Stop: 11/08/25 05:23 Last Admin: 11/08/25 05:47 Dose: 4 mg Documented By: JESSICA Oseltamivir Phosphate (Oseltamivir 75 Mg Capsule) 75 mg PO X1 ONE Stop: 11/08/25 07:38 Last Admin: 11/08/25 07:55 Dose: 75 mg Documented By: KEI Sodium Chloride (Sodium Chloride Rt Georgette 0.9% 3 Ml Nebu) 3 ml INH PRN PRN PRN Reason: SOLN Stop: 12/08/25 07:43 Sodium Chloride (Sodium Chloride Rt Georgette 0.9% 3 Ml Nebu) 3 ml INH PRN PRN PRN Reason: SOLN Stop: 12/08/25 07:43 Sodium Chloride (Sodium Chloride Rt Georgette 0.9% 3 Ml Nebu) 3 ml INH PRN PRN PRN Reason: SOLN Stop: 12/08/25 07:43 As noted Consultations Consultation(s) initiated? (list below): No Diagnosis Upper Respiratory Differential Diagnosis: upper respiratory infection, viral infection and influenza Most likely diagnosis given after review of the tests above:: Influenza Admission Indicated Admission indicated?: not indicated Explain why admission is indicated or not indicated:: Escalation of care including admission/observation considered but I decided to discharge because based on the overall clinical presentation, and after consideration of the patient's course in the emergency department and plan for outpatient management, I believe that neither further observation nor inpatient care is required at this time. Admission Request Was there a request for admission?: No Disposition Plan Disposition Plan: Discharge Discharge Attestation Discharge Attestation: The patient and all family members were given an opportunity to ask questions and understood the discharge instructions. Discharge instructions specifically effects, indications for sooner follow up or return to the emergency department, and the expected course of current diagnosis. Patient condition: Stable Discharge Plan Plan Patient Disposition: HOME (Self Care) Patient condition on transfer: Stable Prescriptions/Referrals Prescriptions/Med Rec: New ondansetron 4 mg tablet,disintegrating 4 mg PO TID 3 Days Qty: 9 0RF dexamethasone 6 mg tablet 12 mg PO QDAY Qty: 2 0RF Rx Instructions: take tomorrow oseltamivir [Tamiflu] 75 mg capsule 75 mg PO BID 5 Days Qty: 10 0RF albuterol-budesonide 90-80 mcg/actuation HFA aerosol inhaler 2 inh inhalation QID PRN (Reason: shortness of breath) Qty: 10.7 0RF No Action amoxicillin-pot clavulanate 875-125 mg tablet 1 tab PO BID Qty: 20 0RF doxycycline monohydrate 100 mg capsule 100 mg PO BID Qty: 20 0RF mupirocin 2 % ointment 1 applic topical BID Qty: 1 0RF ibuprofen 600 mg tablet 600 mg PO Q8H PRN (Reason: pain) Qty: 20 0RF benzonatate 200 mg capsule 200 mg PO TID PRN (Reason: cough) Qty: 30 0RF fexofenadine-pseudoephedrine [Suzie-D 12 Hour] 60-120 mg tablet extended release 12 hr 1 tab PO Q12H PRN (Reason: allergy symptoms) Qty: 20 0RF meloxicam 7.5 mg tablet 7.5 mg PO QDAY Qty: 14 0RF ondansetron 4 mg tablet,disintegrating 4 mg PO Q8H Qty: 14 0RF Referrals: No Primary/Family,Physician [Primary Care Provider] - In 1 week Problem List Clinical Impression: Influenza Patient/Caregiver Discharge Instructions Education Materials: ED Influenza (Adult) Additional Instructions: Follow up with your primary medical doctor within 24 hours. Return to the Emergency Room immediately for any new, worsening, continuing symptoms or any concerns at all. Return to the Emergency Room within 24 hours if you are unable to follow up with your primary medical doctor within 24 hours. Print Language: Macedonian Stand Alone Forms: Tonie Award Info., Patient Portal Info Letter PA/INVESTOR RELATIONS DIRECTOR Supervising Physician PA/INVESTOR RELATIONS DIRECTOR Supervising Physician: Dr. MORAN
[2025-11-08] MEDS: ACETAMINOPHEN 325 MG TABLET 650 MG PO (07:07)
[2025-11-08 07:26] VITALS: BP 121/78; PULSE 123; RESP 17; TEMP 37.9; O2SAT 94
[2025-11-08 07:54] VITALS: TEMP 37.4
[2025-11-08] MEDS: IBUPROFEN TAB 400 MG TABLET 800 MG PO (07:54)
[2025-11-08] MEDS: OSELTAMIVIR 75 MG CAPSULE PO (07:55)
[2025-11-08 07:59] VITALS: BP 115/77; PULSE 101; RESP 16; TEMP 37.4; O2SAT 95
[2025-11-08 08:13] LABS: Lactate (Lactic Acid) 1.7 mMol/L (0.4-2.0)
[2025-11-08 08:19] LABS: Basophils # (Auto) 0.1 Thou/mm3 (0.0-0.2); Basophils % (Auto) 0 % (0-2.5); Eosinophils # (Auto) 0.0 Thou/mm3 (0.0-0.5); Eosinophils % (Auto) 0 % (0-10); Hematocrit 39.9 % (36.0-46.0); Hemoglobin 13.2 g/dL (12.0-16.0); Immature Granulocytes Auto 0.02 Thou/mm3 (0.00-0.00); Lymphocytes # (Auto) 0.4 Thou/mm3 (1.0-4.8); Lymphocytes % (Auto) 4 % (10-50); Mean Corpuscular HGB Conc 33.1 g/dl (31.0-37.0); Mean Corpuscular Hemoglobin 29.3 pg (25.0-35.0); Mean Corpuscular Volume 89 fL (80-100); Monocytes # (Auto) 0.1 Thou/mm3 (0.0-0.8); Monocytes % (Auto) 1 % (0-12); Neutrophils # (Auto) 10.8 Thou/mm3 (1.8-7.7); Neutrophils % (Auto) 94 % (37-80); Nucleated Red Blood Cell # 0.00 Thou/mm3 (0.00-0.00); Nucleated Red Blood Cell % 0 /100 WBC (0); Platelet Count 236 Thou/mm3 (140-440); RDW Standard Deviation 43.4 fL (36.4-46.3); Red Blood Count 4.51 Miln/mm3 (4.00-5.20); White Blood Count 11.5 Thou/mm3 (3.6-11.0)
[2025-11-08 08:38] LABS: Alanine Aminotransferase 23 U/L (10-49); Albumin, Serum 5.0 gm/dL (3.5-5.0); Albumin/Globulin Ratio 1.9 (1.2-2.2); Alkaline Phosphatase 101 U/L (46-116); Anion Gap 11 (7-16); Aspartate Amino Transferase 21 U/L (0-34); BUN/Creatinine Ratio 13 Ratio (12-20); Bilirubin,Total 0.5 mg/dL (0.3-1.2); Blood Urea Nitrogen 10 mg/dL (9-23); Calcium 9.1 mg/dL (8.3-10.6); Calcium (Corrected) 9.1 mg/dL (8.5-10.1); Carbon Dioxide 25.6 mMol/L (20.0-31.0); Chloride 108 mMol/L (98-107); Creatinine (Component) 0.8 mg/dL (0.6-1.3); Estimated Creatinine Clearance 83.9 mL/min (>60); Globulin 2.6 gm/dL (2.3-3.5); Glucose 104 mg/dL (74-106); Osmolality,Calculated 287 (275-295); Potassium 3.8 mMol/L (3.4-5.1); Sodium 145 mMol/L (136-145); Total Protein 7.6 gm/dL (5.7-8.2); eGFR > 60 See Note
== END 2025-11-08 08:38 | disposition home or self-care (01) ==
PROVIDERS: Physician Assistant; Emergency Provider Emergency Medicine
DX: J10.1 Influenza due to other identified influenza virus with other respiratory manifestations (principal); J10.2 Influenza due to other identified influenza virus with gastrointestinal manifestations
CPT/HCPCS: 36415; 71045; 80053; 83605; 84484; 85025; 87040; 87502; 87635; 87651; 94640; 96372; 99284; A9270; J1100; Q0162

== ENCOUNTER 2025-11-12 16:31 | Emergency (ER) | payer BC, SELFPAY ==
--- NOTE | 2025-11-12 16:44 | PC.NURSE ---
THIS RN CONTACTED BUSINESS EMPLOYMENT SPECIALIST TO MAKE HER AWARE OF PTS SPO2 AND HR, WAS TOLD TO PLACE PT IN RME FOR NOW. PT CONNECTED TO 3L O2 VIA NC, CERTIFIED NURSE PRACTITIONER AT BEDSIDE TO GET FULL SET OF VITALS
[2025-11-12 16:50] VITALS: BP 119/81; PULSE 120; RESP 20; TEMP 37.7; O2SAT 90; BMI 28.0
--- NOTE | 2025-11-12 16:52 | XR_ITS ---
EXAMINATION: AP chest TECHNIQUE: AP portable upright chest single view Date and time: November 12, 2025, 1716 hours INDICATIONS: Fever and O2 saturation today. FINDINGS: Left base pneumonia Normal heart size Mild vascular congestion Moderate osteopenia IMPRESSION: Significant left base pneumonia
--- NOTE | 2025-11-12 16:54 | PD.EDRME ---
Rapid Medical Screening Exam RME Arrival date/time: 11/12/25 16:31 45-year-old female presents to the Emergency Department of complaint of cough, congestion and fever and low O2 saturation patient was recently diagnosed with influenza Chief Complaint: Flu Like Symptoms Vital signs: Vital Signs Temperature 99.8 F 11/12/25 16:50 Pulse Rate 120 H 11/12/25 16:50 Respiratory Rate 20 11/12/25 16:50 Blood Pressure 119/81 11/12/25 16:50 Pulse Oximetry (%) 90 L 11/12/25 16:50 Oxygen Delivery Method Room Air 11/12/25 16:50 Vital signs reviewed by provider: Yes Exam: On exam patient does have low O2 sats. Clinical Impression: Lab work and imaging obtained
[2025-11-12] MEDS: ACETAMINOPHEN 500 MG TABLET 1000 MG PO (16:57)
[2025-11-12 17:39] LABS: Lactate (Lactic Acid) 1.1 mMol/L (0.4-2.0)
[2025-11-12 17:44] LABS: Basophils # (Auto) 0.0 Thou/mm3 (0.0-0.2); Basophils % (Auto) 0 % (0-2.5); Eosinophils # (Auto) 0.0 Thou/mm3 (0.0-0.5); Eosinophils % (Auto) 0 % (0-10); Hematocrit 39.5 % (36.0-46.0); Hemoglobin 13.4 g/dL (12.0-16.0); Immature Granulocytes Auto 0.04 Thou/mm3 (0.00-0.00); Lymphocytes # (Auto) 1.9 Thou/mm3 (1.0-4.8); Lymphocytes % (Auto) 15 % (10-50); Mean Corpuscular HGB Conc 33.9 g/dl (31.0-37.0); Mean Corpuscular Hemoglobin 29.4 pg (25.0-35.0); Mean Corpuscular Volume 87 fL (80-100); Monocytes # (Auto) 0.7 Thou/mm3 (0.0-0.8); Monocytes % (Auto) 5 % (0-12); Neutrophils # (Auto) 10.0 Thou/mm3 (1.8-7.7); Neutrophils % (Auto) 79 % (37-80); Nucleated Red Blood Cell # 0.00 Thou/mm3 (0.00-0.00); Nucleated Red Blood Cell % 0 /100 WBC (0); Platelet Count 220 Thou/mm3 (140-440); RDW Standard Deviation 41.5 fL (36.4-46.3); Red Blood Count 4.56 Miln/mm3 (4.00-5.20); White Blood Count 12.6 Thou/mm3 (3.6-11.0)
[2025-11-12 17:56] LABS: HCG,Qualitative Serum Negative
[2025-11-12 18:11] LABS: Alanine Aminotransferase 48 U/L (10-49); Albumin, Serum 4.6 gm/dL (3.5-5.0); Albumin/Globulin Ratio 1.6 (1.2-2.2); Alkaline Phosphatase 87 U/L (46-116); Anion Gap 12 (7-16); Aspartate Amino Transferase 51 U/L (0-34); BUN/Creatinine Ratio 7 Ratio (12-20); Bilirubin,Total 0.8 mg/dL (0.3-1.2); Blood Urea Nitrogen < 5 mg/dL (9-23); Calcium 8.4 mg/dL (8.3-10.6); Calcium (Corrected) 8.4 mg/dL (8.5-10.1); Carbon Dioxide 27.7 mMol/L (20.0-31.0); Chloride 101 mMol/L (98-107); Creatinine (Component) 0.7 mg/dL (0.6-1.3); Estimated Creatinine Clearance 95.3 mL/min (>60); Globulin 2.8 gm/dL (2.3-3.5); Glucose 106 mg/dL (74-106); Osmolality,Calculated 278 (275-295); Potassium 3.3 mMol/L (3.4-5.1); Procalcitonin 0.07 ng/ml (0.0-0.49); Sodium 141 mMol/L (136-145); Total Protein 7.4 gm/dL (5.7-8.2); Troponin I < 0.002 ng/mL (0.0-0.045); eGFR > 60 See Note
--- NOTE | 2025-11-12 18:58 | EDNOTE_ITS ---
Upper Respiratory Inf. RME/HPI General Chief Complaint: Flu Like Symptoms Stated Complaint: DX W/FLU SUNDAY, FEELS WORSE Time Seen by Provider: 11/12/25 18:51 Arrival date/time: 11/12/25 16:31 45-year-old female patient with no past medical history, came in for evaluation regarding worsening cough. Patient has been having flulike symptoms since last Sunday, getting worse, severity moderate. Patient also complained of right-sided chest pain on coughing. Also complaining of no fever. Patient was seen here initially and was diagnosed with influenza. Went to PCP, and was prescribed Tamiflu. Patient denies any other complaints no medication was taken prior to ER visit. RME / HPI RME / HPI Narrative: 11/12/25 16:31 45-year-old female presents to the Emergency Department of complaint of cough, congestion and fever and low O2 saturation patient was recently diagnosed with influenza Exam: On exam patient does have low O2 sats. Impression: Lab work and imaging obtained Related Data Previous Rx's ?Medication ?Instructions ?Recorded meloxicam 7.5 mg tablet 7.5 mg PO QDAY #14 tabs 12/27 01/18 ondansetron 4 mg disintegrating 4 mg PO Q8H #14 tabs 0 01/07/23 tablet amoxicillin 875 mg-potassium 1 tab PO BID #20 tabs 06/19 clavulanate 125 mg tablet doxycycline monohydrate 100 mg 100 mg PO BID #20 caps 08/02/25 capsule ibuprofen 600 mg tablet 600 mg PO Q8H PRN pain #20 t abs 08/02/25 mupirocin 2 % topical ointment 1 applic topical BID #1 tube 08/02/25 benzonatate 200 mg capsule 200 mg PO TID PRN cough #30 caps 10/15/25 fexofenadine 60 mg-pseudoephedrine 1 tab PO Q12H PRN a llergy symptoms 10/15/25 ER 120 mg tablet,ext.release,12 hr #20 tabs (Suzie-D 12 Hour) albuterol 90 mcg-budesonide 80 2 inh inhalation QID VT N shortness 11/08/25 mcg/actuation HFA aerosol inhaler of breath #10.7 gram s dexamethasone 6 mg tablet 12 mg (2 x 6 mg) PO QDAY #2 tabs 11/08/25 oseltamivir 75 mg capsule (Tamiflu) 75 mg PO BID 5 day s #10 caps 11/08/25 amoxicillin 875 mg-potassium 1 tab PO BID #14 tabs clavulanate 125 mg tablet doxycycline hyclate 100 mg capsule 100 mg PO BID #14 c aps 11/12/25 Allergies Allergy/AdvReac Type Severity Reaction Status Date / Time codeine Allergy Severe Vomiting Verified 11/12/25 16:34 metoclopramide Allergy Severe Rash Verified 11/12/25 16:34 morphine Allergy Severe Rash Verified 11/12/25 16:34 dicyclomine AdvReac Severe EYES TWITCH Verified 11/12/25 16:34 Review of Systems Review of Systems Narrative Review of Systems: Review of system reviewed and within normal limits except mentioned in HPI ED Exam Narrative Physical exam: VITAL SIGNS: Reviewed. GENERAL APPEARANCE: Alert and interactive, follows commands, no acute distress, HEAD AND FACE: Non-traumatic. ENT: PERRL, pink conjunctivitis, eyelid no trauma, Mucous membrane moist. NECK: Supple, nontender, no nuchal rigidity. CHEST: No tenderness, no crepitus, no paradoxical movement, no retractions. LUNGS: Clear, well ventilated, symmetric, no rales, no wheezing, no ronchi, no stridor, good breath sounds bilaterally. HEART: Regular rate, regular rhythm, no murmur, no gallops. ABDOMEN: Soft, positive bowel sounds, nondistended, no guarding, nontender, no rebound, no masses, RECTAL: Deferred. GENITAL: Deferred. NEUROLOGICAL: Gross motor function intact sensory function intact, Appropriate for age. MUSCULOSKELETAL: low back nontender, full range of motion. EXTREMITIES: Nontender, full range of motion. SKIN: Color pink, dry, no rash, no lacerations, no abrasions, no contusions. LYMPHATICS: Deferred. Course Quality Measures none Orders Category Date Time Status Bedside COVID-19 Antigen Test NOW Care 11/12/25 16:52 Active Bedside Influenza A&B Antigen Test NOW Care 11/12/25 16:52 Active XR chest 1V portable Stat Exams 11/12/25 16:52 Completed Blood Culture (Lab) Stat Lab 11/12/25 17:20 Received CBC Stat Lab 11/12/25 17:20 Completed Comprehensive Metabolic Panel Stat Lab 11/12/25 17:20 Completed HCG,Qualitative Serum Stat Lab 11/12/25 17:20 Completed Lactate (Lactic Acid) Stat Lab 11/12/25 17:20 Completed Procalcitonin Stat Lab 11/12/25 17:20 Completed Troponin I Stat Lab 11/12/25 17:20 Completed Urinalysis Stat Lab 11/12/25 18:54 Completed Urine Culture Stat Lab 11/12/25 18:54 Received Acetaminophen Tab [Tylenol ES Tab] Med 11/12/25 16:52 Discontinued 1,000 mg PO X1 ONE Albuterol/Ipratr Rt Georgette [Duoneb Rt Georgette] Med 11/12/25 18:58 Discontinued 3 ml INH X1 ONE Azithromycin Inj [Zithromax Inj] 500 mg Med 11/12/25 18:58 Discontinued Sodium Chloride 0.9% 250 ml [Ns] 250 ml IV X1 Potassium Chloride [K-Dur] Med 11/12/25 22:33 Discontinued 40 meq PO X1 ONE Ringers Lactated 1000 ml [Lactated Ringers] 1,000 ml Med 11/12/25 18:58 Discontinued IV 999 mls/hr cefTRIAXone/D5w 1gm IV premix [Rocephin/D5w 1gm IV Med 11/12/25 18:57 Discontinued premix] 1 gm in 50 ml IV X1 dexAMETHasone INJ [Decadron Inj] Med 11/12/25 20:49 Discontinued 10 mg IVP X1 ONE Vital Signs Vital signs: Vital Signs Temperature 99.8 F 11/12/25 16:50 Pulse Rate 120 H 11/12/25 16:50 Respiratory Rate 20 11/12/25 16:50 Blood Pressure 119/81 11/12/25 16:50 Pulse Oximetry (%) 90 L 11/12/25 16:50 Oxygen Delivery Method Room Air 11/12/25 16:50 Upper Respiratory Infection MDM Narrative MDM Narrative:: 45-year-old female patient with no past medical history, came in for evaluation regarding worsening cough. Patient has been having flulike symptoms since last Sunday, getting worse, severity moderate. Patient also complained of right- sided chest pain on coughing. Also complaining of no fever. Patient was seen here initially and was diagnosed with influenza. Went to PCP, and was prescribed Tamiflu. Patient denies any other complaints no medication was taken prior to ER visit. Initially patient came in with oxygen saturation of 89% on room air, her CBC showed leukocytosis 12.6, potassium 3.3 potassium replacement was done. Urinalysis no UTI chest x-ray showed left base pneumonia. Patient was given IV fluids, IV ceftriaxone, IV Zithromax, albuterol breathing treatment and a dose of Decadron. On multiple reevaluation patient is maintaining 94% on room air. Patient verbalized significant improvement of shortness of breath. Patient was advised to closely follow-up with PCP or return to emergency room for worsening of symptoms. Clinically patient is stable for discharge home. I will send her home on doxycycline and Augmentin. I also told her to continue taking the Tamiflu. It was prescribed by PCP. Patient data External records reviewed:: None Clinical information provided by:: patient Social determinants that could affect healthcare access:: none Patient has the following chronic illnesses:: None How is presenting disease/condition affected by chronic disease/condition?: no chronic disease Evaluation data The following diagnostics were reviewed and interpreted by me:: lab results and radiology exam(s) Lab and/or radiology exams considered but not ordered:: None Interpretation Summary: See above Medications / Prescriptions Medications or Prescriptions considered but not ordered:: None Medication administrations:: Medication Administration History Discontinued Medications Acetaminophen (Acetaminophen 500 Mg Tablet) 1,000 mg PO X1 ONE Stop: 11/12/25 16:53 Last Admin: 11/12/25 16:57 Dose: 1,000 mg Documented By: ESMER Albuterol/Ipratropium (Albuterol/Ipratropium (Duoneb) Rt Georgette 3 Ml Nebu) 3 ml INH X1 ONE Stop: 11/12/25 18:59 Last Admin: 11/12/25 19:51 Dose: 3 ml Documented By: FIDE Dexamethasone Sodium Phosphate (Dexamethasone Sod Phos Inj 10 Mg/Ml Vial) 10 mg IVP X1 ONE Stop: 11/12/25 20:50 Last Admin: 11/12/25 22:20 Dose: 10 mg Documented By: Ceftriaxone Sodium/Dextrose (Rocephin/D5w 1gm Iv Premix) 1 gm in 50 mls @ 100 mls/hr IV X1 ONE Stop: 11/12/25 19:26 Last Infusion: 11/12/25 21:29 Dose: Infused Documented By: Admin: 11/12/25 20:43 Dose: 100 mls/hr Documented By: LAILA Azithromycin 500 mg/ Sodium (Chloride) 250 mls @ 250 mls/hr IV X1 ONE Stop: 11/12/25 19:57 Last Infusion: 11/12/25 22:14 Dose: Infused Documented By: Admin: 11/12/25 20:54 Dose: 250 mls/hr Documented By: LAILA Lactated Ringer's (Lactated Ringers) 1,000 mls @ 999 mls/hr IV .Q1H1M ONE Stop: 11/12/25 19:58 Last Infusion: 11/12/25 22:15 Dose: Infused Documented By: Admin: 11/12/25 20:43 Dose: 999 mls/hr Documented By: LAILA Potassium Chloride (Potassium Chloride 20 Meq Tabcr) 40 meq PO X1 ONE Stop: 11/12/25 22:34 See above Consultations Consultation(s) initiated? (list below): No Diagnosis Upper Respiratory Differential Diagnosis: upper respiratory infection and influenza Most likely diagnosis given after review of the tests above:: Pneumonia Admission Indicated Admission indicated?: not indicated Admission Request Was there a request for admission?: No Disposition Plan Disposition Plan: Discharge Discharge Attestation Discharge Attestation: The patient and all family members were given an opportunity to ask questions and understood the discharge instructions. Discharge instructions specifically effects, indications for sooner follow up or return to the emergency department, and the expected course of current diagnosis. Patient condition: Stable Discharge Plan Plan Patient Disposition: HOME (Self Care) Discharge Disposition comment: Stable Prescriptions/Referrals Prescriptions/Med Rec: New doxycycline hyclate 100 mg capsule 100 mg PO BID Qty: 14 0RF amoxicillin-pot clavulanate 875-125 mg tablet 1 tab PO BID Qty: 14 0RF No Action amoxicillin-pot clavulanate 875-125 mg tablet 1 tab PO BID Qty: 20 0RF doxycycline monohydrate 100 mg capsule 100 mg PO BID Qty: 20 0RF mupirocin 2 % ointment 1 applic topical BID Qty: 1 0RF ibuprofen 600 mg tablet 600 mg PO Q8H PRN (Reason: pain) Qty: 20 0RF benzonatate 200 mg capsule 200 mg PO TID PRN (Reason: cough) Qty: 30 0RF fexofenadine-pseudoephedrine [Suzie-D 12 Hour] 60-120 mg tablet extended release 12 hr 1 tab PO Q12H PRN (Reason: allergy symptoms) Qty: 20 0RF meloxicam 7.5 mg tablet 7.5 mg PO QDAY Qty: 14 0RF ondansetron 4 mg tablet,disintegrating 4 mg PO Q8H Qty: 14 0RF dexamethasone 6 mg tablet 12 mg PO QDAY Qty: 2 0RF Rx Instructions: take tomorrow oseltamivir [Tamiflu] 75 mg capsule 75 mg PO BID 5 Days Qty: 10 0RF albuterol-budesonide 90-80 mcg/actuation HFA aerosol inhaler 2 inh inhalation QID PRN (Reason: shortness of breath) Qty: 10.7 0RF Problem List Clinical Impression: Pneumonia Patient/Caregiver Discharge Instructions Education Materials: What Is Pneumonia? Additional Instructions: Thank you for the opportunity for serving you today. You are stable for discharged . You are advised to: Follow-up with your PCP in 1 to 2 days Return to ED for worsening of symptoms Increase oral fluids Take medication as prescribed Take Tylenol Motrin as needed for fever Use your albuterol as needed Continue taking your Tamiflu Print Language: Ukrainian Stand Alone Forms: Tonie Award Info., Patient Portal Info Letter PA/GRAPHIC DESIGN PROFESSOR Supervising Physician PA/GRAPHIC DESIGN PROFESSOR Supervising Physician: MD Enrique
[2025-11-12 19:08] LABS: Collection Type, Urine Clean Catch
[2025-11-12 19:21] LABS: Amorphous Crystals,Urine Present (Absent); Bacteria,Urine 4+; Bilirubin,Urine Negative (Negative); Blood,Urine Negative (Negative); Clarity,Urine Clear (Clear/Hazy); Color,Urine Colorless (Lt Yel-Yel); Glucose, Urine Negative (Negative); Ketones,Urine Negative (Negative); Leukocyte Esterase,Urine Negative (Negative); Nitrite,Urine Negative (Negative); PH,Urine 6.5 (5.0-7.0); Protein,Urine Negative (Neg - Trace); RBC,Urine 1 /hpf (0-3); Specific Gravity,Urine 1.004 (1.001-1.035); Squamous Epithelial Cell,Urine 3 /hpf (0-5); Urobilinogen,Urine Negative mg/dL (0.0-1.0); WBC,Urine 2 /hpf (0-5)
[2025-11-12] MEDS: ALBUTEROL/IPRATROPIUM (Duoneb) RT SOL 3 ML NEBU INH (19:51)
[2025-11-12 20:09] VITALS: PULSE 103; RESP 20; O2SAT 92
[2025-11-12] MEDS: RINGERS LACTATED 1000 ML 1,000 ML 999 ML IV (20:43)
[2025-11-12] MEDS: cefTRIAXone/D5w 1gm IV premix 1 GM/50 ML BAG IV (20:43)
[2025-11-12] MEDS: AZITHROMYCIN INJ 500 MG in SODIUM CHLORIDE 0.9% 250 ML 250 ML 250 MG IV (20:54)
[2025-11-12 23:22] VITALS: BP 120/82; PULSE 102; RESP 20; O2SAT 95
== END 2025-11-12 23:26 | disposition home or self-care (01) ==
LOC: SERX 23:18
PROVIDERS: Nurse Practitioner Primary Care; Emergency Provider Emergency Medicine; PCP Family Medicine
DX: J18.9 Pneumonia, unspecified organism (principal)
CPT/HCPCS: 36415; 71045; 80053; 81001; 83605; 84145; 84484; 84703; 85025; 87040; 87086; 87502; 87635; 94640; 96365; 96375; 99284; A9270; J0456; J0696; J1100; J7050; J7120